=== PATIENT | female | born 1975 | race Caucasian/White ===

== ENCOUNTER 2019-05-09 05:30 | Inpatient (IN) | payer OTHER ==
[~2019-05-09] VITALS: Ht 149.9 cm; Wt 60.3 kg
[2019-05-09 05:46] VITALS: BP 140/76
--- NOTE | 2019-05-09 05:49 | NUR ---
43 YEAR OLD FEMALE COMPLAINS OF NAUSEA AND VOMITTING X 30 MINS AGO. PATIENT STATES THAT SHE WOKE UP AND THEN STARTED FEELING DIZZY. PATIENT BOWEL SOUNDS ACTIVE X4, NONTENDER. PATIENT AOX4, BREATHING EVEN AND UNLABORED, SKIN WARM AND DRY. BED IN LOWEST POSITION, LOCKED, BED RAIL UPX1. TRANSLATION USED. PMH - DENIES ALLERGIES - NKA
--- NOTE | 2019-05-09 06:21 | NUR ---
PATIENT RESTING WITH EYES CLOSED, BREATHING EVEN AND UNLABORED
--- NOTE | 2019-05-09 06:53 | NUR ---
PATIENT RESTIG WITH EYES CLOSED, BREATHIG EVEN AND UNLABORED
[2019-05-09] MEDS ORDERED: ONDANSETRON 4 MG/2 ML VIAL IM ONE (07:10)
[2019-05-09] MEDS ORDERED: MECLIZINE 25 MG TAB PO ONE ×3 (07:20→10:50)
--- NOTE | 2019-05-09 07:30 | NUR ---
ALERT PATIENT DENIES ABDOMINAL PAIN AT THIS TIME, ANSWERED ALL QUESTIONS APPROPRIATELY, MEDICATIONS GIVEN ORDERED. WILL CONTINUE TO MONITOR
[2019-05-09] MEDS ORDERED: NACL 0.9% 1,000 ML IV ONE (09:15)
[2019-05-09] MEDS ORDERED: ONDANSETRON 4 MG/2 ML VIAL IVP ONE (09:15)
--- NOTE | 2019-05-09 09:25 | NUR ---
PT STILL HAVE N/V AFTER PO MEDICATION GIVEN MD NOTIFIED, MEDS CHANGED TO IV, MEDICATION GIVEN ORDERED, PT PLACED ON MONITOR, WILL CONTINUE TO MONITOR.
[2019-05-09] MEDS ORDERED: LORazepam 2 MG/ML VIAL IVP ONE (11:20)
[2019-05-09] MEDS ORDERED: PHENYTOIN 1,000 MG in NACL 0.9% 100 ML IV ONE (11:20)
[2019-05-09 13:14] LABS: BASOPHILS # (AUTO) 0.1 K/uL (0.00-0.22); BASOPHILS % (AUTO) 1.1 % (0.0-2.0); EOSINOPHILS % (AUTO) 0.1 % (0.0-4.0); HEMATOCRIT 38.1 % (36-48); HEMOGLOBIN 12.7 g/dL (12.0-16.0); LYMPHOCYTES # (AUTO) 0.8 K/uL (2.5-16.5); MEAN CORPUSCULAR HEMOGLOBIN 30 pg (27-31); MEAN CORPUSCULAR HGB CONC 33 g/dL (33-37); MEAN CORPUSCULAR VOLUME 89.1 fL (80-94); MONOCYTES # (AUTO) 0.2 K/uL (0.8-1.0); MONOCYTES % (AUTO) 1.8 % (1.7-9.3); NEUTROPHILS # (AUTO) 7.7 K/uL (1.8-7.7); PLATELET COUNT (AUTO) 253 K/uL (140-450); RED BLOOD CELL COUNT(AUTO) 4.28 MIL/uL (4.20-5.40); RED CELL DISTRIBUTION WIDTH 13.8 % (11.6-13.7); WHITE BLOOD COUNT (AUTO) 8.8 K/uL (4.8-10.8)
[2019-05-09 13:24] LABS: PROTHROMBIN TIME 9.9 secs (10.8-13.4)
[2019-05-09 13:25] LABS: ALBUMIN 3.6 g/dL (3.4-5.0); ANION GAP 13.8 (8-16); CARBON DIOXIDE 24.3 mmol/L (21-32); CREATININE 0.7 mg/dL (0.6-1.3); LYMPHOCYTES % (AUTO) 8.9 % (20.5-51.1); NEUTROPHILS % (AUTO) 88.1 % (42.2-75.2); POTASSIUM 4.1 mmol/L (3.5-5.1); TOTAL BILIRUBIN 0.6 mg/dL (0.0-1.0)
[2019-05-09] MEDS ORDERED: GABA100C PO (14:28)
[2019-05-09 15:00] VITALS: BP 132/65
--- NOTE | 2019-05-09 15:00 | NUR ---
Patient will be admitted to care of Dr Perry. Admited to tele room 120B.Belongings list completed. Report to MONSERRAT Carcamo.
--- NOTE | 2019-05-09 15:00 | NUR ---
RECEIVED REPORT FROM ER NURSE. PT IS AWAKE AND ALERT. NO SIGNS OF DISTRESS. PT IS AMBULATORY BUT WEAK. PT HAS SALINE LOCK ON LEFT HAND 22G. CALL LIGHT WITHIN PT'S REACH. FALL PRECAUTIONS IMPLEMENTED. V/S TAKEN T= 97.9, P 71, R 18, BP 132/65, O2 98%. MRSA SWAB DONE. WILL CONTINUE TO MONITOR
[2019-05-09] MEDS ORDERED: LORazepam 2 MG/ML VIAL IVP PRN (15:40)
[2019-05-09] MEDS ORDERED: guaiFENesin DM 200/20 MG-10 ML 10 ML UDC PO PRN (15:40)
[2019-05-09] MEDS ORDERED: MAG SULF 2000 MG/WATER PREMIX 50 ML IV PRN (15:40)
[2019-05-09] MEDS ORDERED: MECLIZINE 25 MG TAB PO PRN (15:40)
[2019-05-09] MEDS ORDERED: DOCUSATE SODIUM 250 MG GELCAP PO PRN (15:40)
[2019-05-09] MEDS ORDERED: HYDROcodone/APAP 5/325 MG 1 TAB TAB PO PRN ×2 (15:40)
[2019-05-09] MEDS ORDERED: MAGNESIUM OXIDE 400 MG TAB PO PRN (15:40)
[2019-05-09] MEDS ORDERED: cloNIDine 0.1 MG TAB PO PRN (15:40)
[2019-05-09] MEDS ORDERED: ACETAMINOPHEN 325 MG TAB PO PRN (15:40)
[2019-05-09] MEDS ORDERED: diphenhydrAMINE 50 MG/ML VIAL IVP PRN (15:40)
[2019-05-09] MEDS ORDERED: ALUMINUM HYD/MAG/SIMETHICONE 30 ML UDC PO PRN (15:40)
[2019-05-09] MEDS ORDERED: ONDANSETRON 4 MG/2 ML VIAL IVP PRN (15:40)
[2019-05-09] MEDS ORDERED: MORPHINE SULFATE 2 MG/ML SYR IVP PRN (15:40)
[2019-05-09] MEDS ORDERED: BISACODYL 10 MG SUPP RC PRN (15:40)
[2019-05-09] MEDS ORDERED: ACETAMINOPHEN 650 MG SUPP RC PRN (15:40)
[2019-05-09] MEDS ORDERED: POTASSIUM CHLORIDE 10 MEQ TABER PO PRN (15:40)
[2019-05-09] MEDS ORDERED: IPRATROPIUM 0.02% 0.5 MG/2.5 ML NEBU INH PRN (15:40)
[2019-05-09] MEDS ORDERED: ALBUTEROL 0.083% 2.5 MG/3 ML NEBU INH PRN (15:40)
[2019-05-09] MEDS ORDERED: SODIUM PHOSPHATE 118 ML ENEM RC PRN (15:40)
--- NOTE | 2019-05-09 16:00 | NUR ---
FREQUENT ROUNDING DONE. PT IS SLEPPING, NO SIGNS OF DISTRESS. MINIMIZED NOISE AND LIGHT IN THE ROOM. WILL CONTINUE TO MONITOR
[2019-05-09] MEDS: NACL 0.9% 1,000 ML IV SCH (16:53)
--- NOTE | 2019-05-09 19:19 | NUR ---
REPORT GIVEN TO FINANCIAL PLANNING ADVISOR NURSE FOR CONTINUITY OF CARE. PT IS SLEEPING, NO SIGNS OF DISTRESS. CALL LIGHT WITHIN PT'S REACH, BED ON LOW, SIDERAILS UP.
--- NOTE | 2019-05-09 19:20 | NUR ---
RECEIVED BEDSIDE REPORT FROM DAY RN. PT IS SLEEPING COMFORTABLY IN BED WITH EYES CLOSED. CHEST RISE AND FALL. RESPIRATIONS ARE EQUAL AND UNLABORED ON ROOM AIR. C/C DIZZINESS AND N/V X1 DAY. DX VERTIGO. PT ON FALL PRECAUTION. MAORI SPEAKING ONLY. IV ON L HAND 22G IVF PER ORDERS. SAFETY MEASURES IN PLACE. CALL LIGHT WITHIN REACH. WILL CONTINUE TO MONITOR.
[2019-05-09 20:00] VITALS: BP 109/59
[2019-05-09] MEDS: LORazepam 1 MG TAB PO SCH (20:14)
--- NOTE | 2019-05-09 20:14 | NUR ---
VSS. YESSY MEDICATION GIVEN PER ORDERS PT TOLERATED WELL. EDUCATED PT ON POSSIBLE S/E. PT VERBALIZED UNDERSTANDING. PT DENIES ANY NAUSEA. STATES SHE FEELS BETTER STILL SOME DIZZINESS. EDUCATED PT TO CALL FOR ASSISTANCE WITH AMBULATING. SAFETY MEASURES ARE IN PLACE. WILL CONTINUE TO MONITOR.
--- NOTE | 2019-05-09 20:38 | NUR ---
RECEIVED PATIENT ON ROOM AIR, PULSE OX SAT 98%. NO SOB NOTED. PRN HHN NOT INDICATED AT THIS TIME. PT MADE AWARE OF ORDERED MEDICATION FREQUENCY AND INSTRUCTED TO CALL NEEDED FOR SOB. NO ACUTE RESPIRATORY DISTRESS NOTED AT THIS TIME. WILL CONTINUE TO MONITOR.
[2019-05-09] MEDS ORDERED: ZOLPIDEM 5 MG TAB PO PRN (21:00)
--- NOTE | 2019-05-09 22:20 | NUR ---
MADE ROUNDS. PT IS SLEEPING COMFORTABLY IN BED WITH EYES CLOSED. CHEST RISE AND FALL NOTED. NO S/S OF DISTRESS. CALL LIGHT IS WITHIN REACH.
[2019-05-10] VITALS: BP 99/52
--- NOTE | 2019-05-10 | NUR ---
VITAL SIGNS ARE WITHIN NORMAL LIMITS. ALL NEEDS MET. CALL LIGHT IS WITHIN REACH. WILL CONTINUE TO MONITOR.
--- NOTE | 2019-05-10 02:03 | NUR ---
PT IS SLEEPING COMFORTABLY IN BED WITH EYES CLOSED. CHEST RISE AND FALL NOTED. CALL LIGHT IS WITHIN REACH.
[2019-05-10 04:00] VITALS: BP 99/52
[2019-05-10] MEDS: NACL 0.9% 1,000 ML IV SCH ×2 (04:03→16:14)
--- NOTE | 2019-05-10 04:06 | NUR ---
VITAL SIGNS ARE WITHIN NORMAL LIMITS. DENIES PAIN. ALL SAFETY MEASURES ARE IN PLACE. WILL CONTINUE TO MONITOR.
--- NOTE | 2019-05-10 06:55 | NUR ---
PT IS SLEEPING COMFORTABLY IN BED. NO S/S OF DISTRESS. WILL ENDORSE TO DAY RN. PT IS STABLE.
--- NOTE | 2019-05-10 07:25 | NUR ---
SHIFT REPORT RECEIVED FROM RESERVATIONS AGENT NURSE. PT IS IN BED AWAKE ALERT AND RESPONSIVE. NO COMPLAINS OF PAIN. NO DISTRESS NOTED. CALL LIGHT IN REACH.
[2019-05-10 08:00] VITALS: BP 108/40
--- NOTE | 2019-05-10 08:55 | NUR ---
PATIENT HAS BEEN SCREENED AND CATEGORIZED LOW NUTRITION RISK. PATIENT WILL BE SEEN WITHIN 7 DAYS OF ADMISSION. 05/16/[address]
[2019-05-10] MEDS: GABAPENTIN 100 MG CAP PO SCH (09:15)
[2019-05-10] MEDS: ENOXAPARIN 40 MG/0.4 ML SYR SUBQ SCH (09:16)
--- NOTE | 2019-05-10 09:46 | NUR ---
PT AMBULATED TO BATHROOM. NO BOWEL MOVEMENT REPORTED. PT AMBULATED BACK TO BED. REPORTED C/O DIZZINESS. PT WAS MEDICATED. NO C/O PAIN. NO DISTRESS NOTED. WILL CONTINUE TO MONITOR. CALL LIGHT IN REACH.
[2019-05-10 12:00] VITALS: BP 105/54
--- NOTE | 2019-05-10 12:00 | NUR ---
PT IS SLEEPING IN BED AT THIS TIME. PT IS RESPONSIVE TO VERBAL STIMULI. NO COMPLAINS OF PAIN. WILL CONTINUE TO MONITOR. CALL LIGHT IN REACH.
--- NOTE | 2019-05-10 15:00 | NUR ---
PT IS IN BED AWAKE AND RESPONSIVE. PT ALSO AMBULATED TO RESTROOM. PT COMPLAINED OF DIZZINESS. NO COMPLAINS OF PAIN. WILL CONTINUE TO MONITOR. CALL LIGHT IN REACH.
[2019-05-10] MEDS: MECLIZINE 25 MG TAB PO SCH ×2 (15:24→18:39)
[2019-05-10 16:00] VITALS: BP 112/57
--- NOTE | 2019-05-10 18:15 | NUR ---
PT IS IN BED AWAKE AND RESPONSIVE. PT HAD DINNER. PT CONTINUES TO HAVE DIZZINESS. NO COMPLAINS OF PAIN. WILL CONTINUE TO MONITOR. CALL LIGHT IN REACH.
--- NOTE | 2019-05-10 19:28 | NUR ---
SHIFT REPORT GIVEN TO GRANITE POLISHER NURSE. PT IS IN BED AWAKE AND RESPONSIVE. NO DISTRESS NOTED. CALL LIGHT IN REACH.
--- NOTE | 2019-05-10 19:29 | NUR ---
RECEIVED SHIFT REPORT FROM AM SHIFT NURSE. PT IS IN BED AWAKE ALERT AND RESPONSIVE. PT SAID SHE STILL FEELS DIZZY. NO COMPLAINS OF PAIN. NO DISTRESS NOTED. CALL LIGHT IN REACH. FALL RISK PRECAUTION IN PLACE
[2019-05-10 20:00] VITALS: BP 117/61
--- NOTE | 2019-05-10 21:00 | NUR ---
PT IN BED COMFORTABLE, NO COMPLAINTS AT THIS TIME. NO RESPIRATORY DISTRESS WILL CONTINUE TO MONITOR
--- NOTE | 2019-05-10 21:06 | NUR ---
PT'S MEDS GIVEMN EXPLAINED THE RISK AND BENEFITS, WILL CONTINUE TO MONITOR
[2019-05-10] MEDS: LORazepam 1 MG TAB PO SCH (21:21)
[2019-05-11] VITALS: BP 156/40
[2019-05-11] MEDS: MECLIZINE 25 MG TAB PO SCH ×3 (00:04→12:08)
--- NOTE | 2019-05-11 01:50 | NUR ---
PT SLEEPING, NO COMPLAINTS AT THIS TIME. FREQ ROUNDS DONE
--- NOTE | 2019-05-11 03:09 | NUR ---
STILL SLEEPING, BUT EASILY AWAKENED WILL CONTINUE TO MONITOR
[2019-05-11] MEDS: NACL 0.9% 1,000 ML IV SCH (04:48)
[2019-05-11 06:00] VITALS: BP 95/54
--- NOTE | 2019-05-11 07:20 | NUR ---
RECEIVED REPORT FROM PRODUCT DISTRIBUTION SPECIALIST. PT IN STABLE CONDITION. AOX4. NO C/O PAIN NO SOB. STANDBY ASSIST. WITH IV ON LEFT HAND 22G 80CC/HR NS. CALL LIGHT WITHIN REACH. WILL CONTINUE TO MONITOR
[2019-05-11 08:00] VITALS: BP 93/58
[2019-05-11] MEDS: ENOXAPARIN 40 MG/0.4 ML SYR SUBQ SCH (08:42)
[2019-05-11] MEDS: GABAPENTIN 100 MG CAP PO SCH (08:43)
--- NOTE | 2019-05-11 08:49 | NUR ---
DUE MORNING MEDS GIVEN TOLERATED WELL. LOVENOX GIVEN ORDERED WITH PLT [id number]
[2019-05-11] MEDS ORDERED: MECL-231 PO (11:37)
[2019-05-11 12:00] VITALS: BP 116/65
--- NOTE | 2019-05-11 12:02 | NUR ---
PCP Appointment: MICHAEL contacted Elsie from Dr. Shant Taylor's office [phone]. MICHAEL arranged for appointment to be on 05/18/2019 at 0940 @ [address] [place] [phone]. Appointment slip was left in patient's chart to be given at discharge. No further needs identified.
--- NOTE | 2019-05-11 12:16 | NUR ---
BONE CHAR KILN TENDER DC PLAN ASSESSMENT [facility] Patient: Alejandra Schneider : 1975 Age/Sex: 43/F Unit#: [id number] Room/Bed: 120/B User: Nel Mittal CM Date: 05/11/19 11:54 Type: CM: Discharge Planning Basic Screen: Yes High Risk DC Screen [place]: Obinna Magdaleno Relationship: Significant other Pre-Admission Living Arrangements: Lives with Other Prior ADL Independent Current Home Health Name/Tel: N/A Current Name/Tel: N/A Current Hospice Name/Tel: N/A Current Dialysis Name/Tel: N/A Healthcare Decision Maker: Patient Advance Directive No Information Taught: Advance Directive Person Taught: Patient Teaching Tools: Verbal Evaluation: Demonstrate Understanding Tentative Discharge Plan/Destination: No Needs Identified Will require assistance post discharge: No Transportation Needs: n/a Referred to Body Shop Technician: No Tentative Discharge Plan Summary: 43 Y/O female pt admitted for vertigo. Pt has no comorbidities according to EMR. SW met with pt at the bedside. Pt was a&o x4, mood and affect appropriate with the situation. Pt's Macanese speaking. Pt reported she lives with and family; verified demographics and phone number. Pt reports she's independent with ambulation and ADLs. Pt's pcp is Dr. Shant Taylor. Pt denied any hx of substance abuse, tobacco use. Pt reported she's been feeling anxious lately and did mentioned to her PCP; no referral or treatment initiated. Pt will DC home once medically clear. No hx of HH or SNF. Michael called insurance CM to update about pt's need for mental health services. MICHAEL/CM will continue following up as needed. Signature: ALEXANDRO Gonsalez Date: May 11, 2019
--- NOTE | 2019-05-11 14:00 | NUR ---
DISCHARGE TEACHINGS AND INSTRUCTION AND PRESCRIPTION PROVIDED. VERTIGO INSTRUCTIONS GIVEN. INTERPRETED BY INTERNATIONAL SALES MANAGER# [id number]. PT VERBALIZED UNDERSTANDING. FOLLOW UP APPOINTMENT ALSO DISCUSSED.
--- NOTE | 2019-05-11 14:55 | NUR ---
DISCHARGED PT ACCOMPANIED BY SON. DISCHARGE INSTRUCTIONS GIVEN. PT VERBALIZED UNDERSTANDING. IV LINES REMOVED. PT IS STABLE
== END 2019-05-11 14:55 | disposition home or self-care (01) | DRG 111 ==
LOC: MED 05:30 → MTU 14:28
PROVIDERS: ADMIT Internal Medicine Pulmonary Disease; ATTEND Internal Medicine Pulmonary Disease
DX: H81.12 Benign paroxysmal vertigo, left ear (principal); H66.90 Otitis media, unspecified, unspecified ear; Z79.899 Other long term (current) drug therapy
CPT/HCPCS: 36415; 70450; 80053; 85025; 85610; 85730; 87081; 93005; 96361; 96372; 96374; 97116; 97161-GP; 99285; J1650; J2405; J7030; J8597

== ENCOUNTER 2020-04-12 06:22 | Day surgery (SDC) | payer OTHER, SELFPAY ==
[~2020-04-12 06:22] MED LIST: GABA100C PO; MECL-231 PO
[2020-04-12] MEDS ORDERED: diphenhydrAMINE 50 MG/ML VIAL ONE (07:52)
[2020-04-12] MEDS ORDERED: fentaNYL citrate 0.05 MG/ML VIAL ONE (07:52)
[2020-04-12] MEDS ORDERED: LIDOCAINE 2% 100 MG/5 ML UJET TP ONE (07:53)
[2020-04-12] MEDS ORDERED: MIDAZOLAM 5 MG/5 ML VIAL ONE (07:53)
[2020-04-12] MEDS ORDERED: fentaNYL citrate 0.05 MG/ML VIAL IVP ONE (08:50)
[2020-04-12] MEDS ORDERED: MIDAZOLAM 2 MG/2 ML VIAL IVP ONE (08:50)
== END 2020-04-12 09:00 | disposition home or self-care (01) ==
LOC: MDS 06:22 → MFCC 06:23 → MDS 09:00
PROVIDERS: ATTEND Internal Medicine Gastroenterology
DX: K59.00 Constipation, unspecified (principal); Z79.899 Other long term (current) drug therapy
CPT/HCPCS: 45378; 87426; J2250; J3010; J1200

== ENCOUNTER 2020-04-28 06:51 | Day surgery (SDC) | payer OTHER ==
[~2020-04-28] VITALS: Ht 149.9 cm; Wt 54.4 kg
[2020-04-28] MEDS ORDERED: BUPIVACAINE-MPF/EPI 0.25% 10 ML VIAL INJ ONE (07:20)
[2020-04-28] MEDS ORDERED: ceFAZolin 1,000 MG VIAL ONE (07:20)
[2020-04-28] MEDS ORDERED: SEVOFLURANE 250 ML BTL INH ONE ×2 (09:52→11:28)
[2020-04-28] MEDS ORDERED: PROPOFOL 200 MG/20 ML VIAL IV ONE ×2 (09:52→11:28)
[2020-04-28] MEDS ORDERED: ROCURONIUM 50 MG/5 ML VIAL IV ONE ×2 (09:52→11:28)
[2020-04-28] MEDS ORDERED: NEOSTIGMINE 1:1000 10 MG/10 ML VIAL ONE ×2 (09:52→11:28)
[2020-04-28] MEDS ORDERED: ONDANSETRON 4 MG/2 ML VIAL ONE ×2 (09:52→11:28)
[2020-04-28] MEDS ORDERED: MEPERIDINE 25 MG/ML SYR ONE (09:52)
[2020-04-28] MEDS ORDERED: LIDOCAINE 2% 100 MG/5 ML SYR IVP ONE ×2 (09:52→11:28)
[2020-04-28] MEDS ORDERED: GLYCOPYRROLATE 0.2 MG/ML VIAL ONE ×2 (09:52→11:28)
[2020-04-28] MEDS ORDERED: DEXAMETHASONE 4 MG/ML VIAL ONE ×2 (09:52→11:28)
[2020-04-28] MEDS ORDERED: fentaNYL citrate 0.05 MG/ML VIAL ONE ×2 (09:52→11:28)
[2020-04-28] MEDS ORDERED: KETOROLAC 30 MG/ML VIAL ONE ×2 (09:52→11:28)
[2020-04-28] MEDS ORDERED: METOCLOPRAMIDE 10 MG/2 ML INJ VIAL ONE ×2 (09:52→11:28)
[2020-04-28] MEDS ORDERED: LACTATED RINGERS 1,000 ML IV SCH (10:25)
[2020-04-28] MEDS ORDERED: diphenhydrAMINE 50 MG/ML VIAL IVP PRN (10:25)
[2020-04-28] MEDS ORDERED: fentaNYL citrate 0.05 MG/ML VIAL IVP PRN (10:25)
[2020-04-28] MEDS ORDERED: HYDROcodone/APAP 5/325 MG 1 TAB TAB PO PRN ×2 (10:25→11:30)
[2020-04-28] MEDS ORDERED: MEPERIDINE 25 MG/ML SYR IVP PRN (10:25)
[2020-04-28] MEDS ORDERED: MORPHINE SULFATE 4 MG/ML SYR IV PRN (11:30)
[2020-04-28] MEDS ORDERED: MORPHINE SULFATE 2 MG/ML SYR IVP PRN (11:30)
[2020-04-28] MEDS ORDERED: HYDROmorphone 1 MG/ML AMP IVP PRN (11:30)
[2020-04-28] MEDS ORDERED: ONDANSETRON 4 MG/2 ML VIAL IV PRN (11:30)
== END 2020-04-28 13:30 | disposition home or self-care (01) ==
LOC: MOR 06:51 → MFCC 07:01 → MOR 13:30
PROVIDERS: ATTEND Surgery
DX: K42.9 Umbilical hernia without obstruction or gangrene (principal); F41.9 Anxiety disorder, unspecified; Z98.51 Tubal ligation status; Z20.828 Contact with and (suspected) exposure to other viral communicable diseases
CPT/HCPCS: 49585; 71045; 81025; C1781; J0690; J1100; J1885; J2001; J2175; J2405; J2704; J2710; J2765; J3010; J3490; U0003

== ENCOUNTER 2020-08-09 08:11 | Day surgery (SDC) | payer OTHER, SELFPAY ==
[2020-08-09] MEDS ORDERED: MIDAZOLAM 5 MG/5 ML VIAL ONE (10:39)
[2020-08-09] MEDS ORDERED: diphenhydrAMINE 50 MG/ML VIAL ONE (10:39)
[2020-08-09] MEDS ORDERED: fentaNYL citrate 0.05 MG/ML VIAL ONE (10:39)
[2020-08-09] MEDS ORDERED: fentaNYL citrate 0.05 MG/ML VIAL IVP ONE (12:45)
[2020-08-09] MEDS ORDERED: MIDAZOLAM 2 MG/2 ML VIAL IVP ONE (12:45)
== END 2020-08-09 12:05 | disposition home or self-care (01) ==
LOC: MDS 08:11 → MMU 08:11 → MDS 12:05
PROVIDERS: ATTEND Internal Medicine Gastroenterology
DX: R13.10 Dysphagia, unspecified (principal); K21.9 Gastro-esophageal reflux disease without esophagitis; K59.00 Constipation, unspecified; Z79.899 Other long term (current) drug therapy; Z20.822 Contact with and (suspected) exposure to COVID-19
CPT/HCPCS: 43239; 81025; 87426; J2250; J3010; J7030; J1200